=== PATIENT | female | born 1975 | race Caucasian/White ===

== ENCOUNTER 2017-02-26 18:24 | Emergency (ER) | payer MEDICAID ==
[2017-02-26 18:33] VITALS: BP 100/60; PULSE 55; RESP 22; TEMP 97.9; O2SAT 96
[2017-02-26] MEDS ORDERED: AMOXICILLIN/CLAVULANATE POT 875/125 MG TAB PO ONE (18:59)
--- NOTE | 2017-02-26 19:05 | EDPHY ---
H & P Stated Complaint: st/sinus issues HPI/ROS: CHIEF COMPLAINT: Cold-like symptoms, sinus tenderness HISTORY OF PRESENT ILLNESS: Patient complains of 2 weeks history of sinus tenderness, sore throat, cough, congestion, rhinorrhea. Also complains of dental pain on the right maxillary ridge. Symptoms have been constant for the 2 weeks. She has tried sinus rinses, [id number] anti-inflammatories and/ or were remedies. No improvement of her symptoms. She has minimal headache, which is primarily over the maxillary sinuses. She has no neck pain or stiffness. No chest pain. No shortness of breath. No abdominal urinary complaints. No other associated complaints or modifying factors. REVIEW OF SYSTEMS: Ten systems reviewed and are negative unless otherwise noted in the HPI PERTINENT MEDICAL HISTORY: Denies EXAMINATION General Appearance: Alert, no distress Head: normocephalic, atraumatic Eyes: Pupils equal and round, no conjunctival pallor or injection. EOMs intact. No nystagmus. ENT, Mouth: Tenderness to the right maxillary sinus. Mucous membranes moist. Uvula midline. Mild erythema. No exudates. No edema. No abnormality of the floor of the mouth. Airway is widely patent. Neck: Normal inspection, supple, non-tender. No meningismus or rigidity. Painless range of motion all planes. Respiratory: Lungs are clear to auscultation. No wheezing, rhonchi or crackles. Cardiovascular: Regular rate and rhythm. No murmur. Pulses intact distally. Gastrointestinal: Abdomen is soft and nontender Back: non-tender, no bony abnormalities Neurological: A&O, nonfocal, normal gait Skin: Warm and dry, no rash. No petechiae or purpura. Extremities: Nontender, no pedal edema Psychiatric: Mood and affect normal DIFFERENTIAL DIAGNOSES: Including but not limited to acute sinusitis, pharyngitis, viral pharyngitis, strep pharyngitis upper respiratory infection MDM: 6:59 p.m. Acute maxillary sinusitis my examination. Vital signs are stable. She also has pharyngitis with minimal erythema. Strep test is pending at her request. 7:25 p.m. Rapid strep test is negative. She does have history examination consistent with maxillary sinusitis. Vital signs stable. Note cephalopathy. No meningismus. Discharged home with 1st dose of Augmentin here and prescription for 10 days of Augmentin. Additionally I recommend Flonase, anti-inflammatories and consider pseudoephedrine as needed. Follow up with primary care physician for definitive care. Return here for worsening symptoms, persistent fever headache. She is comfortable this plan and discharged home in stable condition. SUPERVISION: This patient was independently evaluated without direct examination by the attending physician. Case was discussed with attending physician. Source: Patient Exam Limitations: No limitations - Personal History LMP (Females 10-55): Now Current Tetanus/Diphtheria Vaccine: Yes - Medical/Surgical History Hx Asthma: No Hx Chronic Respiratory Disease: No Hx Diabetes: No Hx Cardiac Disease: No Hx Renal Disease: No Hx Cirrhosis: No Hx Alcoholism: No Hx HIV/AIDS: No Hx Splenectomy or Spleen Trauma: No Other PMH: , repair R 4th finger 07/29/colon cancer - Social History Smoking Status: Never smoked Constitutional: Initial Vital Signs Temperature (C) 97.9 F 02/26/17 18:31 Heart Rate 55 L 02/26/17 18:31 Respiratory Rate 22 H 02/26/17 18:31 Blood Pressure 100/60 02/26/17 18:31 O2 Sat (%) 96 02/26/17 18:31 O2 Delivery Mode Room Air Allergies/Adverse Reactions: Sulfa (Sulfonamide Antibiotics) Allergy (Unknown, Verified 12/18/15 13:37) Vomiting cyclobenzaprine HCl [From Flexeril] Allergy (Verified 12/21/15 14:31) latex Allergy (Verified 09/10/14 22:30) sulfamethoxazole [From Bactrim] Allergy (Verified 12/21/15 14:31) trimethoprim [From Bactrim] Allergy (Verified 12/21/15 14:31) Home Medications: Medication Instructions Recorded Herbals/Supplements -Info Only 1 ea PO DAILY 12/18/15 Amoxicillin/Clavulanate Pot 875 mg PO BID #20 tab 02/26/17 [Augmentin 875 MG TAB (*)] Fluticasone Nasal [Flonase Nasal 1 sprays NASAL BID #1 mdi 02/26/17 [place] (RX)] Medical Decision Making - Data Points Laboratory Results: 02/26/17 02/26/17 Unknown 18:50 Group A Strep Screen NEGATIVE (NEGATIVE) Group A Strep DNA Pending Medications Given: Discontinued Medications Amoxicillin/Clavulanate Potassium (Augmentin 875mg) 875 mg PO EDNOW ONE PRN Reason: Protocol Stop: 02/26/17 19:00 Last Admin: 02/26/17 19:09 Dose: 875 mg Departure - Departure Disposition: Home, Routine, Self-Care Clinical Impression: Acute sinus infection Qualifiers: Sinusitis location: maxillary Recurrence: non-recurrent Qualified Code(s): J01.00 - Acute maxillary sinusitis, unspecified Condition: Good Instructions: Sinusitis (ED), Rhinosinusitis (ED) Additional Instructions: Augmentin as prescribed. Flonase twice daily as prescribed. Ibuprofen 600-800 mg every 8 hours for 5-7 days. Pseudoephedrine [id number] as prescribed as needed. Referrals: Marcus Mcnair DO [Primary Care Provider] - As per Instructions Prescriptions: Amoxicillin/Clavulanate Pot [Augmentin 875 MG TAB (*)] 875 mg PO BID #20 tab Fluticasone Nasal [Flonase Nasal [place] (RX)] 1 sprays NASAL BID #1 mdi
== END 2017-02-26 19:20 | disposition home or self-care (01) ==
DX: J01.00 Acute maxillary sinusitis, unspecified (principal); Z85.038 Personal history of other malignant neoplasm of large intestine; Z91.040 Latex allergy status

== ENCOUNTER → 2017-05-12 | Outpatient (CLI) | payer MEDICAID | LOC: FIMAGING 13:02 | DX: M46.1 Sacroiliitis, not elsewhere classified (principal); G89.29 Other chronic pain; M35.7 Hypermobility syndrome ==

== ENCOUNTER 2017-08-01 10:11 | Day surgery (SDC) | payer MEDICAID ==
[2017-08-01] MEDS ORDERED: LR 1,000 ML IV ONE (10:17)
[2017-08-01] MEDS ORDERED: fentaNYL 100 MCG/2 ML INJ ONE (10:25)
[2017-08-01] MEDS ORDERED: MIDAZOLAM 2 MG/2 ML VIAL ONE (10:25)
--- NOTE | 2017-08-01 11:22 | PDGENHP ---
History & Physical Chief Complaint: F/u colonoscopy for history of colon cancer Relevant Physical Exam: GEN: NAD. Cardiac: RRR. Lungs: CTA B. Abd: Soft, nt, nd
[2017-08-01] MEDS ORDERED: KETAMINE 100 MG/10 ML SYR ONE (11:23)
[2017-08-01] MEDS ORDERED: ACETAMINOPHEN 500 MG TAB PO PRN (11:40)
[2017-08-01] MEDS ORDERED: NALOXONE HCL 0.4 MG/ML INJ IVP PRN (11:40)
[2017-08-01] MEDS ORDERED: LR 500 ML IV PRN (11:40)
[2017-08-01] MEDS ORDERED: ALBUTEROL 3 ML DEYVIAL IH PRN (11:40)
[2017-08-01] MEDS ORDERED: ONDANSETRON 4 MG/2 ML VIAL IVP PRN (11:40)
--- NOTE | 2017-08-01 11:40 | PDANEPAE ---
ANE History of Present Illness colonoscopy ANE Past Medical History - Cardiovascular History Hx Hypertension: No Hx Arrhythmias: No Hx Chest Pain: No Hx Coronary Artery / Peripheral Vascular Disease: No Hx CHF / Valvular Disease: No Hx Palpitations: No Cardiovascular History Comment: HX of OCCASSIONAL HEART PALPITATIONS FROM STRESS x 2 yrs. No cardiac problems - Pulmonary History Hx COPD: No Hx Asthma/Reactive Airway Disease: No Hx Recent Upper Respiratory Infection: No Hx Oxygen in Use at Home: No Hx Sleep Apnea: No Sleep Apnea Screening Result - Last Documented: Negative - Neurologic History Hx Cerebrovascular Accident: No Hx Seizures: No Hx Dementia: No - Endocrine History Hx Diabetes: No Obesity: no - Renal History Hx Renal Disorders: No - Liver History Hx Hepatic Disorders: No - Neurological & Psychiatric Hx Hx Neurological and Psychiatric Disorders: Yes Neurological / Psychiatric History Comment: stress due dx of cancer-"lots of tools in basket". PT for neck and SI joint pain. - Cancer History Hx Cancer: Yes Cancer History Comment: CERVICAL DYSPLASIA - Congenital Disorder History Hx Congenital Disorders: No - GI History Hx Gastrointestinal Disorders: Yes Gastrointestinal History Comment: hx of colon CA -constipation - Other Health History Other Health History: "more tired than normal" - Chronic Pain History Chronic Pain: Yes (NECK PAIN) - Surgical History Prior Surgeries: hand sx. C Section. colectomy. mulltiple colonoscopies ANE Review of Systems Review of systems is: negative Review of Systems: - Exercise capacity METS (RN): 4 METS ANE Patient History - Allergies Allergies/Adverse Reactions: Sulfa (Sulfonamide Antibiotics) Allergy (Unknown, Verified 07/17/17 10:14) Vomiting cyclobenzaprine HCl [From Flexeril] Allergy (Verified 07/17/17 10:14) Anxiety latex Allergy (Verified 07/17/17 10:14) propofol Allergy (Verified 07/17/17 10:14) Other-Enter Comments sulfamethoxazole [From Bactrim] Allergy (Verified 07/17/17 10:14) trimethoprim [From Bactrim] Allergy (Verified 07/17/17 10:14) IV antibiotic-erythromycin Allergy (Uncoded 07/17/17 10:14) Unknown - Home Medications Home medications: home medication list seen and reviewed Home Medications: Herbals/Supplements -Info Only 1 ea PO DAILY 12/18/15 [Last Taken 07/29/17] - NPO status NPO Since - Liquids (Date): 08/01/17 NPO Since - Liquids (Time): 07:30 NPO Since - Solids (Date): 07/31/17 NPO Since - Solids (Time): 08:30 - Smoking Hx Smoking Status: Never smoked - Family Anes Hx Family Hx Anesthesia Complications: NONE ANE Labs/Vital Signs - Vital Signs Blood Pressure: 96/55 Heart Rate: 55 Respiratory Rate: 14 O2 Sat (%): 97 Height: 167.64 cm Weight: 53.07 kg ANE Physical Exam - Airway Neck exam: FROM Mallampati Score: Class 1 Mouth exam: normal dental/mouth exam - Pulmonary Pulmonary: no respiratory distress - Cardiovascular Cardiovascular: regular rate and rhythym - ASA Status ASA Status: II ANE Anesthesia Plan Anesthesia Plan: GA with mask Urgent/Emergent Case: Ruben lee completed preop but documented later for safe timely pt care
--- NOTE | 2017-08-01 11:41 | POSTANESTH ---
Post Anesthetic Evaluation Cardiovascular Status: Normal, Stable Respiratory Status: Normal, Stable Level of Consciousness/Mental Status: Can Participate in Eval Pain Control: Adequate, Prn Tx Ordered Nausea/Vomiting Control: Adequate, Prn Tx Ordered Complications Possibly Related to Anesthesia: None Noted
[2017-08-01 12:02] VITALS: PULSE 60
--- NOTE | 2017-08-01 12:05 | GIREPORT ---
[facility] - Endoscopy Department Patient Name: Andra Coffman Procedure Date: 08/01/2017 11:17 AM Patient Type: Outpatient Attending / ER Physician: Dimitri Newton MD Procedure: Colonoscopy Indications: High risk colon cancer surveillance: Personal history of colon cancer, hx of right sided segmental resection T3 N1. Cancer was located in the transv erse colon (dx at age 40). Providers: Dimitri Newton MD Medicines: Monitored Anesthesia Care Complications: No immediate complications. Description of Procedure: After obtaining informed consent, the scope was passed under direct vis ion. Throughout the procedure, the patient's blood pressure, pulse, and oxyg en saturations were monitored continuously. The Colonoscope with irrigatio n channel was introduced through the anus and advanced to the ileocolonic anastomosis. The colonoscopy was performed without difficulty. The abhishek ent tolerated the procedure well. The quality of the bowel preparation was good. Findings: The perianal and digital rectal examinations were normal. There was evidence of a prior end-to-end ileo-colonic anastomosis in th e right colon. This was patent and was characterized by healthy appearing mucosa. Six sessile polyps were found in the sigmoid colon, descending colon an d transverse colon. The polyps were 1 to 2 mm in size. These polyps were removed with a cold biopsy forceps. Resection and retrieval were comple te. Verification of patient identification for the specimen was done by the physician and nurse using the patient's name and date. Estimated blood loss was minimal. The retroflexed view of the distal rectum and anal verge was normal and showed no anal or rectal abnormalities. Estimated Blood Loss: Estimated blood loss: none. Post Op Diagnosis: - Patent end-to-end ileo-colonic anastomosis, characterized by healthy appearing mucosa. - Six 1 to 2 mm polyps in the sigmoid colon, in the descending colon an d in the transverse colon, removed with a cold biopsy forceps. Resected and retrieved. - The distal rectum and anal verge are normal on retroflexion view. Recommendation: - Discharge patient to home (with escort). - Resume previous diet. - Continue present medications. - Repeat colonoscopy in 1 year for surveillance. - Await pathology results. Results are available within 10 days. - Thank you for allowing me to participate in the care of your patient. Attending Participation: I personally performed the entire procedure. Dimitri Newton MD Dimitri Newton MD 08/01/2017 12:04:54 PM Number of Addenda: 0 Note Initiated On: 08/01/2017 11:17 AM Total Procedure Duration Time 0 hours 20 minutes 28 seconds [email or web address]}
[2017-08-01 12:17] VITALS: BP 107/72; RESP 17; O2SAT 96
[2017-08-01 12:21] VITALS: TEMP 97.3
== END 2017-08-01 12:39 | disposition home or self-care (01) ==
LOC: FSGY 10:11
PROVIDERS: ATTEND Internal Medicine Gastroenterology
PROC: 0DBM8ZX Excision of Descending Colon, Via Natural or Artificial Opening Endoscopic, Diagnostic (ICD-10-PCS; principal; 2017-08-01 11:30)
PROC: 0DBL8ZX Excision of Transverse Colon, Via Natural or Artificial Opening Endoscopic, Diagnostic (ICD-10-PCS; principal; 2017-08-01 11:30)
PROC: 0DBN8ZX Excision of Sigmoid Colon, Via Natural or Artificial Opening Endoscopic, Diagnostic (ICD-10-PCS; principal; 2017-08-01 11:30)
PROC: 0DJD8ZZ Inspection of Lower Intestinal Tract, Via Natural or Artificial Opening Endoscopic (ICD-10-PCS; principal; 2017-08-01 11:30)
DX: Z12.11 Encounter for screening for malignant neoplasm of colon (principal); Z85.038 Personal history of other malignant neoplasm of large intestine; K63.5 Polyp of colon
CPT/HCPCS: J2250; J3010

== ENCOUNTER → 2018-01-10 | Outpatient (CLI) | payer MEDICAID | LOC: FIMAGING 10:12 | PROVIDERS: ATTEND Family Medicine | DX: R41.3 Other amnesia (principal); Z85.038 Personal history of other malignant neoplasm of large intestine ==

== ENCOUNTER 2018-03-19 13:59 | Day surgery (SDC) | payer MEDICAID ==
--- NOTE | 2018-03-19 15:06 | PDANEPAE ---
ANE History of Present Illness Patient presents for colonoscopy ANE Past Medical History - Cardiovascular History Hx Hypertension: No Hx Arrhythmias: No Hx Chest Pain: No Hx Coronary Artery / Peripheral Vascular Disease: No Hx CHF / Valvular Disease: No Hx Palpitations: No Cardiovascular History Comment: HX of OCCASSIONAL HEART PALPITATIONS FROM STRESS x 2 yrs. No cardiac problems - Pulmonary History Hx COPD: No Hx Asthma/Reactive Airway Disease: No Hx Recent Upper Respiratory Infection: No Hx Oxygen in Use at Home: No Hx Sleep Apnea: No - Neurologic History Hx Cerebrovascular Accident: No Hx Seizures: No Hx Dementia: No - Endocrine History Hx Diabetes: No - Renal History Hx Renal Disorders: No - Liver History Hx Hepatic Disorders: No - Neurological & Psychiatric Hx Hx Neurological and Psychiatric Disorders: Yes Neurological / Psychiatric History Comment: stress due dx of cancer-"lots of tools in basket". PT for neck and SI joint pain. - Cancer History Hx Cancer: Yes Cancer History Comment: CERVICAL DYSPLASIA - Congenital Disorder History Hx Congenital Disorders: No - GI History Hx Gastrointestinal Disorders: Yes Gastrointestinal History Comment: hx of colon CA -constipation - Other Health History Other Health History: "more tired than normal" - Chronic Pain History Chronic Pain: Yes (NECK PAIN) - Surgical History Prior Surgeries: hand sx. C Section. colectomy. mulltiple colonoscopies ANE Review of Systems Review of Systems: ANE Patient History - Allergies Allergies/Adverse Reactions: Sulfa (Sulfonamide Antibiotics) Allergy (Unknown, Verified 07/17/17 10:14) Vomiting cyclobenzaprine HCl [From Flexeril] Allergy (Verified 07/17/17 10:14) Anxiety latex Allergy (Verified 07/17/17 10:14) propofol Allergy (Verified 07/17/17 10:14) Other-Enter Comments sulfamethoxazole [From Bactrim] Allergy (Verified 07/17/17 10:14) trimethoprim [From Bactrim] Allergy (Verified 07/17/17 10:14) IV antibiotic-erythromycin Allergy (Uncoded 07/17/17 10:14) Unknown - Home Medications Home medications: home medication list seen and reviewed Home Medications: Herbals/Supplements -Info Only 1 ea PO DAILY 12/18/15 [Last Taken 07/29/17] - NPO status NPO Status: no food or drink >8 hours NPO Since - Liquids (Date): 03/19/18 NPO Since - Liquids (Time): 10:00 NPO Since - Solids (Date): 03/18/18 NPO Since - Solids (Time): 08:00 - Smoking Hx Smoking Status: Never smoked - Family Anes Hx Family Hx Anesthesia Complications: NONE ANE Labs/Vital Signs - Vital Signs Blood Pressure: 105/68 Heart Rate: 54 Respiratory Rate: 16 O2 Sat (%): 96 Height: 167.64 cm Weight: 53.524 kg ANE Physical Exam - Airway Mallampati Score: Class 2 Mouth exam: normal dental/mouth exam - Pulmonary Pulmonary: no respiratory distress - Cardiovascular Cardiovascular: regular rate and rhythym - ASA Status ASA Status: II ANE Anesthesia Plan Anesthesia Plan: GA with mask (Patient requests Ketamine)
[2018-03-19] MEDS ORDERED: INDOMETHACIN 50 MG SUPP PR PRN (15:11)
--- NOTE | 2018-03-19 15:11 | PDGENHP ---
History & Physical Chief Complaint: diarrhea History of Present Illness: 42 year old female with hx of CRC presents for diarrhea. Pertinent Past, Social, Family History: PMHx: CRC. PSurghx: colectomy Relevant Physical Exam: HEENT: anicteric. CV; RRR +s1s2. Lungs: CTAB. Abd: soft,nt, + bs Cardiorespiratory Assessment: ASA 2
[2018-03-19] MEDS ORDERED: MIDAZOLAM 2 MG/2 ML VIAL ONE (15:13)
[2018-03-19] MEDS ORDERED: KETAMINE 500 MG/10 ML VIAL ONE (15:14)
[2018-03-19] MEDS ORDERED: NS 500 ML IV SCH (15:15)
[2018-03-19] MEDS ORDERED: LR 500 ML IV PRN (15:29)
[2018-03-19] MEDS ORDERED: NALOXONE HCL 0.4 MG/ML INJ IVP PRN (15:29)
[2018-03-19] MEDS ORDERED: ONDANSETRON 4 MG/2 ML VIAL IVP PRN (15:29)
--- NOTE | 2018-03-19 16:02 | POSTANESTH ---
Post Anesthetic Evaluation Cardiovascular Status: Similar to Pre-Op Cond Respiratory Status: Similar to Pre-op Cond. Level of Consciousness/Mental Status: Mildly Sleepy, Arousable Pain Control: Adequate, Prn Tx Ordered Nausea/Vomiting Control: Adequate, Prn Tx Ordered Complications Possibly Related to Anesthesia: None Noted
--- NOTE | 2018-03-19 16:25 | GIREPORT ---
[facility] - Endoscopy Department Patient Name: Andra Coffman Procedure Date: 03/19/2018 2:56 PM Patient Type: Outpatient Attending MD/ ER Physician: Won Clay MD Procedure: Colonoscopy Indications: Clinically significant diarrhea of unexplained origin Patient Profile: 42 year old female with a history of a transverce colon cancer with resection presents for evaluation of diarrhea. Providers: Won Clay MD Medicines: Monitored Anesthesia Care Complications: No immediate complications. Estimated blood loss: Minimal. Description of Procedure: After obtaining informed consent, the scope was passed under direct vis ion. Throughout the procedure, the patient's blood pressure, pulse, and oxyg en saturations were monitored continuously. The Colonoscope with irrigatio n channel was introduced through the anus and advanced to the terminal il eum. The colonoscopy was performed without difficulty. The patient tolerated the procedure well. The quality of the bowel preparation was good. The term inal ileum, ileocecal valve, appendiceal orifice, and rectum were photograph ed. Findings: The perianal and digital rectal examinations were normal. Pertinent negatives include no palpable rectal lesions. The terminal ileum appeared normal. Biopsies were taken with a cold for ceps for histology. A localized area of mildly erythematous mucosa was found at the anastom osis. This was biopsied with a cold forceps for histology. Biopsies for histology were taken with a cold forceps for evaluation of microscopic colitis. A 2 mm polyp was found in the rectum. The polyp was sessile. The polyp was removed with a cold biopsy forceps. Resection and retrieval were comple te. Estimated Blood Loss: Estimated blood loss was minimal. Post Op Diagnosis: - The examined portion of the ileum was normal. Biopsied. - Erythematous mucosa at the colonic anastomosis. Biopsied. - One 2 mm polyp in the rectum, removed with a cold biopsy forceps. Res ected and retrieved. - Biopsies were taken with a cold forceps for evaluation of microscopic colitis. Recommendation: - Discharge patient to home (with escort). - Resume previous diet. - Continue present medications. - Repeat colonoscopy in 3 years for surveillance. - Await pathology results. - Return to GI office in 4 weeks. - Thank you for allowing me to participate in the care of your patient. Attending Participation: I personally performed the entire procedure. Won Clay MD Won Clay MD 03/19/2018 4:24:47 PM This report has been signed electronicallyWon Clay MD Number of Addenda: 0 Note Initiated On: 03/19/2018 2:56 PM Total Procedure Duration Time 0 hours 27 minutes 32 seconds [email or web address]
[2018-03-19 17:51] VITALS: BP 98/63
== END 2018-03-19 17:47 | disposition home or self-care (01) ==
LOC: FSGY 13:59
PROVIDERS: ATTEND Internal Medicine Gastroenterology
PROC: 0DBE8ZX Excision of Large Intestine, Via Natural or Artificial Opening Endoscopic, Diagnostic (ICD-10-PCS; principal; 2018-03-19 15:15)
DX: R19.7 Diarrhea, unspecified (principal); D12.6 Benign neoplasm of colon, unspecified; K63.89 Other specified diseases of intestine; Z85.038 Personal history of other malignant neoplasm of large intestine; Z90.49 Acquired absence of other specified parts of digestive tract
CPT/HCPCS: J2250

== ENCOUNTER → 2018-10-31 | Outpatient (CLI) | payer MEDICAID ==
[~2018-10-31] MED LIST: GADOBUTROL 10 ML VIAL IVP ONE
== END ==
LOC: FIMAGING 11:58
PROVIDERS: ATTEND Surgery
DX: R92.8 Other abnormal and inconclusive findings on diagnostic imaging of breast (principal); N64.59 Other signs and symptoms in breast; C18.4 Malignant neoplasm of transverse colon
CPT/HCPCS: A9585; C8908